=== PATIENT | female | born 2000 | race Hispanic/Latino ===

== ENCOUNTER 2021-06-23 16:03 | Emergency (ER) | payer BC, OTHER ==
[~2021-06-23] VITALS: Ht 165.1 cm; Wt 95.3 kg
[2021-06-23] MEDS ORDERED: HYDROCODONE/APAP 7.5MG-325MG 1 EA TAB PO ONE (17:00)
== END 2021-06-23 18:30 | disposition home or self-care (01) ==
LOC: ER 16:08
DX: S93.402A Sprain of unspecified ligament of left ankle, initial encounter (principal); X50.1XXA Overexertion from prolonged static or awkward postures, initial encounter; Y93.01 Activity, walking, marching and hiking; Y92.89 Other specified places as the place of occurrence of the external cause
CPT/HCPCS: 99283